=== PATIENT | male | born 2000 | race Two or more races ===

== ENCOUNTER 2019-09-26 14:20 | Emergency (ER) | payer OTHER ==
[~2019-09-26] VITALS: Ht 180.3 cm; Wt 59.0 kg
== END 2019-09-26 17:15 | disposition home or self-care (01) ==
LOC: ER 14:20
DX: T78.1XXA Other adverse food reactions, not elsewhere classified, initial encounter (principal); J04.10 Acute tracheitis without obstruction

== ENCOUNTER 2022-01-30 19:58 | Emergency (ER) | payer OTHER ==
[~2022-01-30] VITALS: Ht 180.3 cm; Wt 61.2 kg
== END 2022-01-30 21:30 | disposition home or self-care (01) ==
LOC: ER 19:58
DX: A49.3 Mycoplasma infection, unspecified site (principal); J10.1 Influenza due to other identified influenza virus with other respiratory manifestations; R09.81 Nasal congestion; R50.9 Fever, unspecified; Z20.822 Contact with and (suspected) exposure to COVID-19; Z88.6 Allergy status to analgesic agent

== ENCOUNTER → 2025-04-12 | Emergency (ER) | payer OTHER ==
[~2025-04-12] VITALS: Ht 177.8 cm; Wt 63.5 kg
== END | disposition home or self-care (01) ==
LOC: ER 21:35
DX: F10.129 Alcohol abuse with intoxication, unspecified (principal); Z88.6 Allergy status to analgesic agent